=== PATIENT | male | born 1985 | race Caucasian/White ===

== ENCOUNTER 2021-11-08 16:28 | Inpatient (IN) | payer MEDICAID ==
[~2021-11-08] VITALS: Ht 165.1 cm; Wt 72.6 kg
--- NOTE | 2021-11-08 16:47 | NUR ---
[email or web address], medical screening exam in progress
[2021-11-08] MEDS ORDERED: LORAZEPAM 2 MG/1 ML VIAL IV ONE (17:00)
[2021-11-08] MEDS ORDERED: IV NORMAL SALINE 1000 ML BAG IV ONE ×2 (17:00→17:45)
[2021-11-08] MEDS ORDERED: LORAZEPAM 2 MG/1 ML VIAL ONE (17:11)
[2021-11-08 17:20] LABS: HEMATOCRIT 45.7 % (36.7-47.1); MEAN CORPUSCULAR HEMOGLOBIN 30.4 uug (23.8-33.4); MEAN CORPUSCULAR VOLUME 87.8 fL (73.0-96.2); PLATELET COUNT (AUTO) 294 K/uL (152-348)
--- NOTE | 2021-11-08 17:36 | NUR ---
Patient is resting comfortably on gurney with eyes closed, calm and less anxious@this time.
[2021-11-08 17:37] LABS: ALANINE AMINOTRANSFERASE 250 U/L (16-63); ALKALINE PHOSPHATASE 144 U/L (50-136); ASPARTATE AMINOTRANSFERASE 188 U/L (15-37); BILIRUBIN,DIRECT 0.6 mg/dL (0.0-0.2); BILIRUBIN,TOTAL 1.9 mg/dL (0.2-1.0); CARBON DIOXIDE 18 mmol/L (21-32); CHLORIDE 95 mmol/L (98-107); CREATININE 0.9 mg/dL (0.6-1.3); GLUCOSE 114 mg/dL (74-106); POTASSIUM 3.1 mmol/L (3.5-5.1); TOTAL PROTEIN, SERUM 8.5 g/dL (6.4-8.2); UREA NITROGEN, BLOOD 8 mg/dL (7-18)
[2021-11-08 18:00] LABS: THYROID STIMULATING HORMONE 1.346 mIU/mL (0.358-3.740)
--- NOTE | 2021-11-08 18:23 | NUR ---
Patient is sleeping comfortably on gurney with eyes closed, for disposition.
--- NOTE | 2021-11-08 19:06 | NUR ---
Patient is still for disposition, currently on ER observation status per MD. Nursing SBAR given to DALE Candelaria.
[2021-11-08] MEDS ORDERED: POTASSIUM BICARBONATE/CIT AC 25 MEQ TABLET.EFF PO ONE (19:45)
[2021-11-08] MEDS ORDERED: ASPIRIN 81 MG TAB.CHEW PO ONE (19:45)
[2021-11-08] MEDS ORDERED: CHLORDIAZEPOXIDE HCL 25 MG CAPSULE PO ONE ×2 (19:45→22:45)
[2021-11-08] MEDS ORDERED: ASPIRIN 81 MG TAB.CHEW ONE (20:07)
[2021-11-08] MEDS ORDERED: CHLORDIAZEPOXIDE HCL 25 MG CAPSULE ONE ×2 (20:08→22:54)
[2021-11-08] MEDS ORDERED: POTASSIUM BICARBONATE/CIT AC 25 MEQ TABLET.EFF ONE (20:09)
[2021-11-08] MEDS ORDERED: MAGNESIUM SULFATE/D5W 100 ML ONE ×2 (20:09→20:19)
[2021-11-08] MEDS: MAGNESIUM SULFATE/D5W 100 ML IV SCH ×2 (20:31→20:57)
[2021-11-08] MEDS ORDERED: MAGNESIUM SULFATE 2 GM in IV DEXTROSE 5% 100 ML IV ONE (21:45)
[2021-11-08] MEDS ORDERED: THIAMINE HCL 100 MG TABLET PO ONE (21:45)
[2021-11-08] MEDS ORDERED: THIAMINE HCL 100 MG TABLET ONE (21:52)
[2021-11-08] MEDS ORDERED: MAGNESIUM SULFATE/D5W 200 ML ONE (21:52)
[2021-11-08] MEDS ORDERED: ENOXAPARIN SODIUM 80 MG/0.8 ML DISP.SYRIN SQ ONE ×2 (23:15→23:31)
--- NOTE | 2021-11-09 00:33 | NUR ---
Dr. Acuna spoke with Dr. Ortiz for panel call.
--- NOTE | 2021-11-09 00:48 | NUR ---
Report given to Samantha HUNTER tele.
[2021-11-09] MEDS ORDERED: ONDANSETRON 4 MG/2 ML VIAL IV PRN (01:45)
[2021-11-09] MEDS ORDERED: ACETAMINOPHEN 325 MG TABLET PO PRN (01:45)
[2021-11-09] MEDS ORDERED: MAGNESIUM HYDROXIDE 30 ML LIQUID UDC PO PRN (01:45)
[2021-11-09] MEDS ORDERED: REMEDY ESSENTIAL ZINC PASTE 113 GM TP PRN (01:45)
[2021-11-09] MEDS ORDERED: ZOLPIDEM 5 MG TABLET PO PRN (01:45)
[2021-11-09] MEDS ORDERED: MORPHINE SULFATE 2 MG/1 ML DISP.SYRIN IV PRN (01:45)
[2021-11-09] MEDS ORDERED: LORAZEPAM 2 MG/1 ML VIAL IV PRN (01:45)
[2021-11-09 01:59] VITALS: BP 137/97
[2021-11-09 04:00] VITALS: BP 127/85
--- NOTE | 2021-11-09 05:58 | NUR ---
Pt admitted to Tele, SR on monitor. [place] speaking, able to make needs known. Denies chest pain or SOB at this time. Pt states that he feels anxious, able to tolerate Ativan. Safety maintained. Will endorse to day shift.
[2021-11-09] MEDS: PANTOPRAZOLE SODIUM 40 MG TABLET.DR PO SCH (06:21)
[2021-11-09 06:56] LABS: BILIRUBIN,DIRECT 0.7 mg/dL (0.0-0.2); BILIRUBIN,TOTAL 2.5 mg/dL (0.2-1.0); TOTAL PROTEIN, SERUM 7.4 g/dL (6.4-8.2)
[2021-11-09] MEDS ORDERED: ENOXAPARIN SODIUM 80 MG/0.8 ML DISP.SYRIN SQ SCH (09:00)
[2021-11-09] MEDS ORDERED: ASPIRIN 81 MG TAB.CHEW GT SCH (09:00)
[2021-11-09] MEDS: CHLORDIAZEPOXIDE HCL 25 MG CAPSULE PO SCH ×3 (09:20→18:29)
[2021-11-09 10:27] VITALS: BP 117/71
[2021-11-09 16:13] VITALS: BP 101/64
--- NOTE | 2021-11-09 19:30 | NUR ---
Received patient lying in bed. AAOx4. In no apparent distress. Denies any pain or SOB. IV site on left hand intact and patent. Needs assessed and attended to. Safety measure initiated and call light within reached.
[2021-11-09 20:13] VITALS: BP 134/77
[2021-11-10 05:24] VITALS: BP 116/70
[2021-11-10] MEDS: PANTOPRAZOLE SODIUM 40 MG TABLET.DR PO SCH (06:06)
--- NOTE | 2021-11-10 06:10 | NUR ---
Patient slept well through out the night. In no apparent distress. No alcohol withdrawal symptoms noted. Patient calm and relax. Needs attended to and met. Safety measure maintained and call light within reached.
[2021-11-10 06:15] LABS: HEMATOCRIT 43.9 % (36.7-47.1); MEAN CORPUSCULAR HEMOGLOBIN 30.7 uug (23.8-33.4); MEAN CORPUSCULAR VOLUME 89.8 fL (73.0-96.2); PLATELET COUNT (AUTO) 203 K/uL (152-348)
[2021-11-10 06:48] LABS: CREATININE 0.7 mg/dL (0.6-1.3); MAGNESIUM 2.1 mg/dL (1.8-2.4); PHOSPHOROUS 3.3 mg/dL (2.5-4.9); POTASSIUM 3.9 mmol/L (3.5-5.1)
[2021-11-10 06:50] LABS: THYROID STIMULATING HORMONE 2.544 mIU/mL (0.358-3.740)
--- NOTE | 2021-11-10 07:30 | NUR ---
Received patient sitting on the side of the bed. No sign of distress noted at this time. Patient is on seizure precautions. Safety measures are in place. Will continue to monitor.
[2021-11-10] MEDS: CHLORDIAZEPOXIDE HCL 25 MG CAPSULE PO SCH ×2 (08:32→13:26)
[2021-11-10] MEDS ORDERED: FOLI1TAB94 PO (09:41)
[2021-11-10] MEDS ORDERED: PANT40TA49 PO (09:41)
[2021-11-10 11:45] VITALS: BP 95/54
--- NOTE | 2021-11-10 17:20 | NUR ---
Patient discharged with all paperwork and belongings. All medications given as ordered. Patient picked up at security by friend Hudson. IV and wrist band removed. Patient is stable. Patient teaching completed.
== END 2021-11-10 17:20 | disposition home or self-care (01) | DRG 775 ==
LOC: ER 16:37 → TELE3 23:45 → MEDSURG3 11-09 08:55
PROVIDERS: ADMIT Student in an Organized Health Care Education/Training Program; ATTEND Registered Nurse
DX: F10.139 Alcohol abuse with withdrawal, unspecified (principal); E87.2 Acidosis; K70.10 Alcoholic hepatitis without ascites; K76.0 Fatty (change of) liver, not elsewhere classified; E83.42 Hypomagnesemia; R07.9 Chest pain, unspecified; E87.6 Hypokalemia; Y90.3 Blood alcohol level of 60-79 mg/100 ml; F41.0 Panic disorder [episodic paroxysmal anxiety]; R94.31 Abnormal electrocardiogram [ECG] [EKG]; R61 Generalized hyperhidrosis
CPT/HCPCS: 36415; 71045; 83735; 84100; 84443; 84484; 85025; 93005; 93307; A4663; G0378; G0480; J1650; J2060; J3475; J7030